=== PATIENT | male | born 1995 | race Caucasian/White ===

== ENCOUNTER 2022-05-19 11:32 | Inpatient (IN) | payer OTHER ==
[~2022-05-19] VITALS: Ht 177.8 cm; Wt 65.7 kg
[~2022-05-19 11:32] MED LIST: ALLEGRA ALLERGY60 MG PO; Naprosyn500 MG PO; Norco 10-325 T1 EACH PO; Pepcid40 MG PO; Prednisone20 MG PO
[2022-05-19 11:46] LABS: PCO2 Venous 24.8 mmHg (38-42); PO2 Venous 70.6 mmHg (38-42)
[2022-05-19 11:48] LABS: pH Blood Venous <6.80 (7.34-7.37)
[2022-05-19 11:49] LABS: Base Excess Venous -30.9 mmol/L
[2022-05-19 11:50] LABS: BASOPHILS ABSOLUTE AUTO 0.11 K/mm3 (0.00-0.23); BASOPHILS PERCENT AUTO 0 % (0-2); EOSINOPHILS ABSOLUTE AUTO 0.01 K/mm3 (0.00-0.68); EOSINOPHILS PERCENT AUTO 0 % (0-6); Hematocrit 45.6 % (37.0-53.0); Hemoglobin 15.7 g/dL (13.5-17.5); IMMATURE GRAN ABSOLUTE AUTO 1.32 K/mm3 (0.00-0.10); IMMATURE GRAN PERCENT AUTO 4 % (0-1); LYMPHOCYTES ABSOLUTE AUTO 1.43 K/mm3 (0.84-5.20); LYMPHOCYTES PERCENT AUTO 4 % (21-46); MONOCYTES ABSOLUTE AUTO 2.54 K/mm3 (0.16-1.47); MONOCYTES PERCENT AUTO 8 % (4-13); Mean Corpuscular HGB 30.4 pg (26.0-34.0); Mean Corpuscular HGB Conc 34.4 g/dL (31.5-36.5); Mean Corpuscular Volume 88 fL (80-100); Mean Platelet Volume 11.6 fL (9.1-12.4); NEUTROPHILS ABSOLUTE AUTO 28.39 K/mm3 (1.96-9.15); NEUTROPHILS PERCENT AUTO 84 % (41-73); Platelet Count 250 K/mm3 (150-400); RDW Coefficient Variation 12.3 % (11.7-14.2); RDW Standard Deviation 40.3 fL (35.1-46.3); Red Blood Cell Count 5.17 M/mm3 (4.30-5.90)
[2022-05-19 11:55] LABS: Calcium, Ionized (POC) 1.26 mmol/L (1.10-1.46); Chloride (POC) 97 mmol/L (98-108); Creatinine (POC) 2.2 mg/dL (0.8-1.3); Glucose (ISTAT POC) 636 mg/dL (70-99); Hemoglobin (POC) 16.7 g/dL (13.5-17.5); Potassium (POC) 5.4 mmol/L (3.5-5.5); Sodium (POC) 123 mmol/L (135-148); Total CO2 (POC) 8 mmol/L (21-32)
[2022-05-19 12:05] LABS: Ethanol (Alcohol), Blood, Med <3 mg/dL
[2022-05-19 12:07] LABS: Alanine Aminotransfer (ALT/SGP 35 U/L (12-78); Albumin/Globulin Ratio 1.3 (0.8-1.8); Alk Phos 142 U/L (50-136); Anion Gap 30 mmol/L (6-16); Aspartate Aminotrans (AST/SGOT 46 U/L (12-37); Bilirubin, Total 0.6 mg/dL (0.1-1.0); Blood Urea Nitrogen 60 mg/dL (8-24); Bun/Creatinine Ratio 30.2 (12.0-20.0); CO2, Blood 6 mmol/L (21-32); Calcium, Blood 8.6 mg/dL (8.5-10.1); Chloride, Blood 90 mmol/L (98-108); Creatinine, Blood 1.99 mg/dL (0.60-1.20); Globulin, Blood 3.1 g/dL (2.2-4.0); Glomerular Filtration Rate 47 (60-); Glucose, Blood 643 mg/dL (70-99); Potassium, Blood 5.3 mmol/L (3.5-5.5); Sodium, Blood 126 mmol/L (136-145); Total Protein, Blood 7.1 g/dL (6.4-8.2)
[2022-05-19 12:40] LABS: U Amphetamine Screen Not Detected; U Barbituate Screen Not Detected; U Benzodiazapine Screen Not Detected; U Buprenorphine Screen Not Detected; U Cannabinoids Screen DETECTED; U Cocaine Screen Not Detected; U Methadone Screen Not Detected; U Methamphetamine Screen Not Detected; U Opiates Screen Not Detected; U Oxycodone Screen Not Detected; U Phencyclidine Screen Not Detected; U Propoxyphene Screen Not Detected
[2022-05-19 12:50] LABS: Source, Urine Foley catheter
[2022-05-19 13:01] LABS: Appearance, Urine Clear (Clear); Bilirubin, Urine Neg (Neg); Blood, Urine 5+ (Neg); Color, Urine Yellow (P-Yellow); Glucose Qualitative, Urine 4+ (Neg); Ketones, Urine 4+ (Neg); Leukocyte Esterase, Urine Neg (Neg); Nitrite, Urine Neg (Neg); Protein, Urine 2+ (Neg); Urobilinogen, Urine NORM (Normal)
[2022-05-19 13:17] LABS: Influenza A, PCR NEGATIVE (NEGATIVE); Influenza B, PCR NEGATIVE (NEGATIVE); Resp Syncytial Virus, PCR NEGATIVE (NEGATIVE); SARS-Cov-2 (COVID-19) PCR, MMC NEGATIVE (NEGATIVE)
[2022-05-19 13:19] LABS: Bacteria Not Seen /hpf; Squamous Epithelial Cells Not Seen /hpf (Few); White Blood Cells, Urine Not Seen /hpf (0-5)
[2022-05-19 13:20] LABS: Granular Casts 0-2 /lpf (0); Hyaline Casts 0-2 /lpf (0-2)
[2022-05-19 16:06] LABS: Base Excess Venous -25.7 mmol/L; Bicarbonate Venous 8.5 mmol/L (24.0-30.0); PCO2 Venous 20.4 mmHg (38-42); PO2 Venous 74.1 mmHg (38-42)
[2022-05-19 16:45] LABS: Bun/Creatinine Ratio 37.3 (12.0-20.0); Calcium, Blood 7.7 mg/dL (8.5-10.1); Creatinine, Blood 1.53 mg/dL (0.60-1.20)
--- NOTE | 2022-05-19 18:34 | NUR ---
PATIETN CONFUSED, PULLING AT RESTRAINTS, UNCONSOLABLE FROM STAFF AND FAMILY, SCREAMS OUT, NABIL ARMS AND FEET SOFT RESTRAINTS, CSM+, SKIN CHECKED, SKIN INTACT. MEDICATED WITH ATIVAN CORE TEMP WAS 94.3, BEAR HUGGER ON TEMP NOW 96.8, PATIENT RESTING NO DISTRESS PRESENTLY. RESPIRATIONS 20-30, LS DIMINISHED, HEART RATE 90-130, BP WNL, TEMP MATHEWS IN PLACE, OUTPUT 2000+, NPO, FAMILY DENIES ANY MEDICAL HISTROY, PATIENT HAS NEVER BEEN IN THE HOSPITAL. BC DONE, STARTED ON SEPSIS PROTOCOL, DENIES ANY DRUG USE OTHER THAN THC. INSULIN GTT AT 7, NS AT 200 ML/HR, WILL REALY TO PM RN, WCTM
[2022-05-19 21:25] LABS: Bun/Creatinine Ratio 36.5 (12.0-20.0); Creatinine, Blood 1.26 mg/dL (0.60-1.20); Potassium, Blood 3.1 mmol/L (3.5-5.5)
[2022-05-20 04:22] LABS: Bun/Creatinine Ratio 39.5 (12.0-20.0); Creatinine, Blood 0.84 mg/dL (0.60-1.20); Potassium, Blood 4.6 mmol/L (3.5-5.5)
--- NOTE | 2022-05-20 06:39 | NUR ---
SHIFT SUMMARY: PT INITIALLY VERY WITHDRAWN AND REQUIRES REPEATED STIMULATION TO OPEN EYES AND FOLLIOW COMMANDS BUT PT NOT ORIENTED. PT CONTINUED ON INSULIN GTT WITH D5 1/2NS @150/HR. ORDER RECEIVED FROM DR. SIDDIQUI AT AROUND 2030 FOR ADDITIONAL LABS AT 21OO. ANION GAP CONTINUES TO CLOSE. PT'S MENTATION IMPLOVED SLIGHTLY OVER NIGHT, WITH PT ABLE TO WAKE MORE EASILY AND FOLLOW COMMANDS. PT STILL LOCALIZING THE MATHEWS CATHETER AND IS IMPULSIVE. SOFT RESTRAINTS SEEM TO STILL BE APPROPRIATE. BGL CHECKED Q1H OVER NIGHT.
--- NOTE | 2022-05-20 07:26 | NUR ---
ASSUMED CARE: PT AWAKE BUT DROWSY. STATES HIS NAME AND BIRTHDAY, KNOWS HE'S IN THE HOSPITAL IN [place]. ASKS WHY HE'S HERE. RN ORIENTS HIM TO SITUATION. PT DENIES EVER BEING TOLD HE'S DIABETIC. PHONE IN HAND TO CALL . CALL LIGHT IN REACH. ICE WATER AVAILABLE. EXPLAINED NPO STATUS UNTIL DR ABLE TO SEE PT. IV INSULIN GTT AT 5.5UNITS/HR WITH D5 1/2 RUNNING. NO ACUTE NEEDS AT THIS TIME.
[2022-05-20 07:56] LABS: Hematocrit 37.5 % (37.0-53.0); Mean Corpuscular HGB Conc 37.3 g/dL (31.5-36.5); Mean Platelet Volume 11.8 fL (9.1-12.4); Platelet Count 170 K/mm3 (150-400); RDW Coefficient Variation 12.3 % (11.7-14.2); RDW Standard Deviation 35.5 fL (35.1-46.3); Red Blood Cell Count 4.67 M/mm3 (4.30-5.90); White Blood Cell Count 7.06 K/mm3 (4.00-11.30)
[2022-05-20 07:58] LABS: Mean Corpuscular Volume 80 fL (80-100)
--- NOTE | 2022-05-20 09:15 | NUR ---
DR SIDDIQUI CAME TO SEE PT AND TOLD HIM THAT HE HAS DIABETES AND THAT HE WILL NEED TO BE ON INSULIN. ATTEMPTED TO CALL PT'S BUT UNABLE TO GET THROUGH. ASKED PT WHAT HE KNOWS ABOUT DIABETES AND HE STATES THAT HE KNOWS IT CAN BE DEADLY. EXPLAINED THAT THE COMPLICATIONS COME FROM POOR DIABETES CONTROL. INFORMED HIM THAT WE WILL BE PROVIDING EDUCATION GRADUALLY SO NOT TO OVERWHELM HIM. PT REQUESTED MATHEWS CATH TO BE REMOVED. MATHEWS REMOVED AND URINAL PROVIDED. AWAITING MEAL TRAY TO START TRANSITION PROCESS.
--- NOTE | 2022-05-20 09:25 | NUR ---
PT'S CALLED TO GET UPDATE. UPDATED HER ON PT'S DIAGNOSIS AND SHE STATES HER MOTHER HAD DIABETES SO IT IS A TOPIC SHE IS FAMILIAR WITH. SHE STATES SHE WILL BE IN AT 11 AND INFORMED HER THAT THIS RN WILL START EDUCATION AT THAT TIME AND THAT WE WILL BE GRADUAL SO TO NOT OVERWHELM THEM. DIETITIAN AT BEDSIDE AT THIS TIME.
--- NOTE | 2022-05-20 10:15 | NUR ---
PT'S FATHER HERE TO VISIT AND STATES THAT PT'S GRANDMOTHER AND 2 COUSINS ALL HAD EARLY ONSET DIABETES. 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 WILL RELAY INFORMATION FURTHER WHEN PT'S S.O. ARRIVES.
--- NOTE | 2022-05-20 11:42 | NUR ---
SYSTEMS PROTECTION TECHNICIAN CAME TO SEE PT AND FAMILY REGARDING INSURANCE AND DISCHARGE NEEDS. RN ENTERED ROOM TO GIVE PACKET WITH DIABETES EDUCATION AND STARTED WITH BASIC INSTRUCTION. INSTRUCTED PT AND FAMILY TO REVIEW PACKET OF INFORMATION AND THAT WE WILL REVIEW WITH THEM TIME GOES ON. PT'S PARENTS AND SPOUSE AT BEDSIDE AT THIS TIME.
--- NOTE | 2022-05-20 13:45 | NUR ---
CALL TO DR SIDDIQUI TO UPDATE HIM ON PT'S STATUS. AWARE THAT CBGS HAVE BEEN BETWEEN LOW 100S TO 180S. PT NAUSEATED AND TOLERATING SMALL AMOUNTS OF FOOD BUT BLOOD SUGARS STABLE. WASH OIL PUMP OPERATOR HELPER AND NURSING CIAIO COUNTER MOLDER AWARE
--- NOTE | 2022-05-20 15:00 | NUR ---
Spiritual Care Request. Pt. is resting but reponds when I enter the room. Pt. didn't personally request spiritual care. Pt. verbalized that it is his mother that "believes in that stuff". Empathicially listen and engage with pt. in the point of his struggle. Establish rapport. Pt. displays evidence of trust. Pt. verbalized gratitude for the spiritual care visit.
--- NOTE | 2022-05-20 16:07 | NUR ---
CALL TO DR SIDDIQUI TO MAKE SURE HE WAS AWARE THAT NO LONG ACTING INSULIN WAS CURRENTLY ORDERED. DR SIDDIQUI STATED THAT HE IS AWARE AND WAS WATCHING PT'S SUGARS TO DETERMINE WHAT LONG ACTING TO ORDER AND STATES HE WILL PLACE FURTHER ORDERS.
--- NOTE | 2022-05-20 16:20 | NUR ---
REPORT GIVEN TO MEDICAL FLOOR NURSE. PT TRANSFERRED VIA WHEEL CHAIR BY HOSPITAL STAFF. CALL TO TO MAKE HER AWARE OF NEW ROOM
--- NOTE | 2022-05-20 16:21 | NUR ---
UNABLE TO LEAVE MESSAGE WITH DUE TO BUSY SIGNAL.
--- NOTE | 2022-05-20 16:38 | NUR ---
RN NOTE PT TRANSFERED TO MEDICAL FLOOR FROM ICU AT 1620 HRS VIA W/C. HE WAS ABLE TO TRANSFER INDEPENDENTLY, SAID HE FELT A LITTLE DIZZY ON TRANSFER. HE LOOKS TO BE SLEEPING NOW.
--- NOTE | 2022-05-20 17:34 | NUR ---
PT SAID HE'S VERY TIRED, HAS HAD HIS EYES CLOSED RESTING SINCE HE'S BEEN HERE ON THE MEDICAL UNIT. HE IS NOT ENGAGING IN CONVERSATION AT THIS TIME. TRIED TO CALL REYMUNDO TO LET HER KNOW ABOUT TRANSFER BUT STILL BUSY SIGNAL. ACCUCHECK DONE BUT MEAL TRAYS NOT HERE YET. BED LOW, CALL LIGHT IN REACH.
--- NOTE | 2022-05-20 18:15 | NUR ---
POOR APPETITE. ENCOURAGED TO EAT AND GIVEN RATIONALE FOR EATING AND TAKING INSULIN WITH MEALS. I TALKED WITH HIM ABOUT THE INSULIN I WAS GIVING, AMOUNT, WHAT HIS SUGAR WAS BUT HE DIDN'T DEMONSTRATE AN INTEREST IN LEARNING OR DISCUSSING AT THIS TIME. I ASKED HIM IF HE WOULD LIKE TO GIVE THE INSULIN HIMSELF BUT HE DECLINED.
--- NOTE | 2022-05-21 05:19 | NUR ---
SHIFT SUMMARY AOX4. VSS. REPORTS ALLOVER ABD PAIN/DISCOMFORT, NAUSEA, LACK OF APPETITE, MEDICATED 1X c ZOFRAN. PT HAD INCONT SOFT BM, NO FURTHER NAUSEA OR ABD PAIN REPORTED. HS CBG @208, PROVIDED 15U GLARGINE PER ORDERS- EDUCATED & OBSERVED PT GIVING HIMSELF THE INSULIN. SLEPT SOUNDLY T/O NIGHT. ABLE TO MAKE NEEDS KNOWN. WILL MONITOR.
[2022-05-21 06:09] LABS: Bun/Creatinine Ratio 30.3 (12.0-20.0); Calcium, Blood 8.8 mg/dL (8.5-10.1); Creatinine, Blood 0.63 mg/dL (0.60-1.20)
[2022-05-21 06:10] LABS: Potassium, Blood 2.6 mmol/L (3.5-5.5)
--- NOTE | 2022-05-21 09:53 | NUR ---
MD CALL PT C/O SEVERE PAIN TO ARM WITH POTASSIUM INFUSION. TRIED REDUCING THE RATE, GIVING IT CONCURRENT WITH NS INFUSION, SWITCHING TO ANOTHER IV SITE BUT PT WANTS ME TO STOP INFUSION. POTASSIUM STOPPED. DR SIDDIQUI INFORMED AND HE SAID OK TO CANCEL IV POTASSIUM, HE WILL PUT IN DIFFERENT POTASSIUM MEDICATION ORDER.
--- NOTE | 2022-05-21 11:29 | NUR ---
PT HAS ALTERNATED FROM REFUSAL TO DO OWN FINGERSTICK THIS MORNING TO AGREEING TO PARTICIPATE IN EDUCATION. HE HAS ALTERNATED FROM SWEARING AT ME TO BEING APPROPRIATE WITH ME AND THEN AGREED TO PARTICIPATE IN EDUCATION. DR SIDDIQUI TOLD HIM THAT HE CAN BE DISCHARGED IF HE CAN PROVE THAT HE CAN CAR FOR HIS DIABETES AT HOME. I SPOKE TO ROSALEE, LIQUID WASTE TREATMENT PLANT OPERATOR, WHO IS COMING TO TALK TO HIM TODAY. ANDRESSA, ANALYTICAL TECH TALKING WITH PT, PT HAS BEEN APPROVED FOR [facility] AND WORKING ON GETTING MEDS AND SUPPLIES AT PHARMACY. PT'S IS HERE. SHE SAID THAT SHE IS A CAREGIVER AND HAS CHECKED BLOOD SUGARS AND GIVEN INSULIN INJECTIONS AND FEELS COMFORTABLE WITH IT. SHE SAID THAT SHE READ THROUGH THE EDUCATIONAL MATERIAL THAT WAS PROVIDED TO PT.
[2022-05-21] MEDS ORDERED: INSULIN GL100 UNIT/3 SC (17:30)
[2022-05-21] MEDS ORDERED: HUMULIN R100 UNIT/2 SC (17:32)
--- NOTE | 2022-05-21 19:36 | NUR ---
DISCHARGE AT 1905 TO HOME MR SAUL HAD A COMPLICATED DISCHARGE PROCESS TODAY. INSULATION WORKER WAS INVOLVED IN HELPING PT TO GET HIS MEDICATIONS AND EQUIPMENT FOR DISCHARGE. [facility] WOULD GIVE HIS INSULIN TODAY, WHEREAS OTHER PHARMACIES WANTED 2 DAY LEAD TIME FOR INSURANCE APPROVAL. [facility] PHARMACIST JC SAID THAT GLARGINE IS NOT COVERED BY HIS INSURANCE AND THAT LEVEMIR INSULIN PEN WAS COVERED. I CALLED AND SPOKE TO DR SIDDIQUI WHO SAID THAT LEVEMIR WAS TOTALLY FINE, SAME DOSE. BLOOD GLUCOSE MONITOR FORM WAS FAXED TO [facility] AND PT'S TOOK VOUCHER TO PICK IT UP, BUT THEY WON'T HAVE THESE AVAILABLE UNTIL TOMORROW. 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 HIS PURCHASED A GLUCOMETER FOR TONIGHT. HIS IS A CAREGIVER AND SAID SHE FEELS VERY COMFORTABLE USING THE GLUCOMETER, GIVING INSULIN INJECTIONS AND ALL ASPECTS OF THIS PROCESS. PT DEMONSTRATED FINGER STICK BLOOD COLLECTION AND DEMONSTRATED DRAWING UP INSULIN ACCURATELY AND SHOWED A DEMONSTRATION OF INJECTING HIMSELF WITH A SALINE SC INJECTION. I REVIEWED AREAS TO ROTATE INJECTIONS WITH PT AND HIS . I GAVE HIM A PACKAGE TO START SETTING UP CARE WITH [facility] AND CONTACT NUMBERS. WENT THROUGH DISCHARGE INSTRUCTIONS, WRITTEN , VERBAL AND DEMONSTRATIONS. I ASKED HIM QUESTIONS TO CHECK HIS UNDERSTANDING AND HE DID ANSWER APPROPRIATELY. POT ROOM TAPPER CAME TODAY TO GIVE EDUCATION WITH PT AND HIS . IVS REMOVED AND PT DISCHARGED VIA W/C TO HOME AT 1905HRS. HE AND HIS VERBALISED UNDERSTANDING OF DC INSTRUCTIONS.
== END 2022-05-21 19:09 | disposition home or self-care (01) | DRG 637 ==
LOC: ER 11:32 → ICUW 12:51 → MEDS 05-20 16:18 → ENPENDDIS 05-21 16:25 → MEDS 05-21 19:09
PROVIDERS: Emergency Medicine; ADMIT Internal Medicine
DX: E11.10 Type 2 diabetes mellitus with ketoacidosis without coma (principal); G92.8 Other toxic encephalopathy; N17.9 Acute kidney failure, unspecified; R64 Cachexia; Z68.1 Body mass index [BMI] 19.9 or less, adult; Z20.822 Contact with and (suspected) exposure to COVID-19; D72.828 Other elevated white blood cell count; T68.XXXA Hypothermia, initial encounter; E87.6 Hypokalemia; Z88.8 Allergy status to other drugs, medicaments and biological substances; X58.XXXA Exposure to other specified factors, initial encounter
CPT/HCPCS: 0241U; 36415; 51702; 71045; 80047; 80048; 80053; 81001; 82803; 82947; 83036; 83605; 83690; 83880; 84484; 85014; 85025; 85027; 93005; 93010; 96374-59; 99285-25; A9270; G0480; J0696; J1815; J2060; J2405; J3480; J7030; J7040; J7042

== ENCOUNTER 2023-07-07 11:44 | Emergency (ER) | payer OTHER ==
[~2023-07-07] VITALS: Ht 190.5 cm; Wt 77.1 kg
[~2023-07-07 11:44] MED LIST changes: +HUMULIN R100 UNIT/2 SC; +INSULIN GL100 UNIT/3 SC
[2023-07-07 12:20] LABS: BASOPHILS ABSOLUTE AUTO 0.15 K/mm3 (0.00-0.23); BASOPHILS PERCENT AUTO 1 % (0-2); EOSINOPHILS ABSOLUTE AUTO 0.23 K/mm3 (0.00-0.68); EOSINOPHILS PERCENT AUTO 2 % (0-6); Hematocrit 44.7 % (37.0-53.0); Hemoglobin 15.4 g/dL (13.5-17.5); IMMATURE GRAN ABSOLUTE AUTO 0.16 K/mm3 (0.00-0.10); IMMATURE GRAN PERCENT AUTO 1 % (0-1); LYMPHOCYTES ABSOLUTE AUTO 2.87 K/mm3 (0.84-5.20); LYMPHOCYTES PERCENT AUTO 18 % (21-46); MONOCYTES ABSOLUTE AUTO 0.54 K/mm3 (0.16-1.47); MONOCYTES PERCENT AUTO 3 % (4-13); Mean Corpuscular HGB 30.6 pg (26.0-34.0); Mean Corpuscular HGB Conc 34.5 g/dL (31.5-36.5); Mean Corpuscular Volume 89 fL (80-100); Mean Platelet Volume 10.5 fL (9.1-12.4); NEUTROPHILS ABSOLUTE AUTO 11.86 K/mm3 (1.96-9.15); NEUTROPHILS PERCENT AUTO 75 % (41-73); Platelet Count 302 K/mm3 (150-400); RDW Coefficient Variation 12.2 % (11.7-14.2); RDW Standard Deviation 40.1 fL (35.1-46.3); Red Blood Cell Count 5.04 M/mm3 (4.30-5.90); White Blood Cell Count 15.81 K/mm3 (4.00-11.30)
[2023-07-07 12:23] LABS: Base Excess Venous -6.6 mmol/L; Bicarbonate Venous 19.2 mmol/L (24.0-30.0); PCO2 Venous 42.3 mmHg (38-42); pH Blood Venous 7.29 (7.34-7.37)
[2023-07-07 12:30] VITALS: BP 139/74
[2023-07-07 12:44] LABS: Albumin, Blood 4.2 g/dL (3.4-5.0); Albumin/Globulin Ratio 1.7 (0.8-1.8); Bilirubin, Total 1.2 mg/dL (0.1-1.0); Bun/Creatinine Ratio 26.8 (12.0-20.0); Calcium, Blood 8.8 mg/dL (8.5-10.1); Creatinine, Blood 0.82 mg/dL (0.60-1.20); Globulin, Blood 2.5 g/dL (2.2-4.0); Potassium, Blood 4.5 mmol/L (3.5-5.5); Total Protein, Blood 6.7 g/dL (6.4-8.2)
== END 2023-07-07 15:08 | disposition home or self-care (01) ==
LOC: ER 11:44
PROVIDERS: Emergency Medicine
DX: E10.10 Type 1 diabetes mellitus with ketoacidosis without coma (principal); F17.220 Nicotine dependence, chewing tobacco, uncomplicated; Z88.8 Allergy status to other drugs, medicaments and biological substances; Z79.4 Long term (current) use of insulin
CPT/HCPCS: 71045; 80053; 82803; 82947; 85025; 93005; 93010; 96361; 96374; 99285-25; J2405; J7030

== ENCOUNTER 2024-03-18 16:49 | Emergency (ER) | payer OTHER ==
[~2024-03-18] VITALS: Ht 188 cm; Wt 75.3 kg
[~2024-03-18 16:49] MED LIST changes: +Inderal 20 mg T20 MG PO
[2024-03-18] MEDS ORDERED: NS 1,000 ML IV SCH (17:10)
[2024-03-18 17:28] LABS: Base Excess Venous 3.9 mmol/L; Bicarbonate Venous 26.8 mmol/L (24.0-30.0); PCO2 Venous 49.3 mmHg (38-42); pH Blood Venous 7.38 (7.34-7.37)
[2024-03-18 17:35] LABS: Chloride (POC) 96 mmol/L (98-108); Creatinine (POC) 0.8 mg/dL (0.8-1.3); Glucose (ISTAT POC) 481 mg/dL (70-99); Hemoglobin (POC) 13.9 g/dL (13.5-17.5); Potassium (POC) 4.4 mmol/L (3.5-5.5); Sodium (POC) 134 mmol/L (135-148); Total CO2 (POC) 26 mmol/L (21-32)
[2024-03-18 17:43] LABS: BASOPHILS PERCENT AUTO 1 % (0-2); EOSINOPHILS ABSOLUTE AUTO 0.11 K/mm3 (0.00-0.68); EOSINOPHILS PERCENT AUTO 1 % (0-6); Hematocrit 38.2 % (37.0-53.0); Hemoglobin 12.9 g/dL (13.5-17.5); IMMATURE GRAN ABSOLUTE AUTO 0.04 K/mm3 (0.00-0.10); IMMATURE GRAN PERCENT AUTO 0 % (0-1); LYMPHOCYTES ABSOLUTE AUTO 1.41 K/mm3 (0.84-5.20); LYMPHOCYTES PERCENT AUTO 10 % (21-46); MONOCYTES ABSOLUTE AUTO 0.96 K/mm3 (0.16-1.47); MONOCYTES PERCENT AUTO 7 % (4-13); Mean Corpuscular HGB 30.6 pg (26.0-34.0); Mean Corpuscular HGB Conc 33.8 g/dL (31.5-36.5); Mean Corpuscular Volume 91 fL (80-100); Mean Platelet Volume 10.2 fL (9.1-12.4); NEUTROPHILS ABSOLUTE AUTO 11.34 K/mm3 (1.96-9.15); NEUTROPHILS PERCENT AUTO 81 % (41-73); Platelet Count 335 K/mm3 (150-400); RDW Coefficient Variation 12.6 % (11.7-14.2); RDW Standard Deviation 41.9 fL (35.1-46.3); Red Blood Cell Count 4.21 M/mm3 (4.30-5.90); White Blood Cell Count 13.96 K/mm3 (4.00-11.30)
[2024-03-18 18:04] LABS: Albumin, Blood 3.8 g/dL (3.4-5.0); Albumin/Globulin Ratio 1.2 (0.8-1.8); Bilirubin, Total 1.1 mg/dL (0.1-1.0); Bun/Creatinine Ratio 23.9 (12.0-20.0); Calcium, Blood 9.3 mg/dL (8.5-10.1); Creatinine, Blood 0.71 mg/dL (0.60-1.20); Globulin, Blood 3.3 g/dL (2.2-4.0); Total Protein, Blood 7.1 g/dL (6.4-8.2)
[2024-03-18] MEDS ORDERED: Ondansetron HCl 2 MG / ML 2ML Vial IV ONE (20:45)
[2024-03-18] MEDS ORDERED: Insulin Regular 100 Unit/ML 1ML Dose IV ONE (20:45)
[2024-03-18] MEDS ORDERED: Insulin Glargine-Yfgn 100 Unit/mL 3 ML SYR SC ONE (21:00)
[2024-03-18] MEDS ORDERED: Mag Hydrox/AL Hydrox/Simeth 30 ML UDC PO ONE (21:05)
[2024-03-18] MEDS ORDERED: Lidocaine 2% Viscous Soln 15 ML UDC PO ONE (21:05)
[2024-03-18 22:00] VITALS: BP 113/67
== END 2024-03-18 22:13 ==
LOC: ER 16:49
PROVIDERS: Physician Assistant
DX: E10.65 Type 1 diabetes mellitus with hyperglycemia (principal); R10.9 Unspecified abdominal pain; E86.0 Dehydration; Z91.148 Patient's other noncompliance with medication regimen for other reason; R11.2 Nausea with vomiting, unspecified; Z88.8 Allergy status to other drugs, medicaments and biological substances; Z79.4 Long term (current) use of insulin; F17.220 Nicotine dependence, chewing tobacco, uncomplicated
CPT/HCPCS: 80047; 80053; 82803; 82947; 85014; 85025; 96361; 96374; 99284-25; A9270; J1815; J2405; J7030

== ENCOUNTER 2024-09-18 00:36 | Observation (INO) | payer OTHER ==
[~2024-09-18] VITALS: Ht 188 cm; Wt 67.8 kg
[~2024-09-18 00:36] MED LIST changes: +BASAGLAR K100 UNIT/1
[2024-09-18] MEDS ORDERED: Insulin Human Regular 100 UNIT in NS 100 ML IV SCH (00:50)
[2024-09-18] MEDS ORDERED: NS 1,000 ML IV SCH (00:50)
[2024-09-18] MEDS ORDERED: Ketorolac Tromethamine 15mg Vial IV ONE (00:55)
[2024-09-18 01:03] LABS: BASOPHILS ABSOLUTE AUTO 0.12 K/mm3 (0.00-0.23); BASOPHILS PERCENT AUTO 1 % (0-2); EOSINOPHILS ABSOLUTE AUTO 0.01 K/mm3 (0.00-0.68); EOSINOPHILS PERCENT AUTO 0 % (0-6); Hematocrit 46.4 % (37.0-53.0); Hemoglobin 15.2 g/dL (13.5-17.5); IMMATURE GRAN ABSOLUTE AUTO 0.06 K/mm3 (0.00-0.10); IMMATURE GRAN PERCENT AUTO 0 % (0-1); LYMPHOCYTES PERCENT AUTO 15 % (21-46); MONOCYTES ABSOLUTE AUTO 1.02 K/mm3 (0.16-1.47); MONOCYTES PERCENT AUTO 6 % (4-13); Mean Corpuscular HGB 29.6 pg (26.0-34.0); Mean Corpuscular HGB Conc 32.8 g/dL (31.5-36.5); Mean Corpuscular Volume 90 fL (80-100); Mean Platelet Volume 10.5 fL (9.1-12.4); NEUTROPHILS PERCENT AUTO 78 % (41-73); Platelet Count 305 K/mm3 (150-400); RDW Coefficient Variation 12.7 % (11.7-14.2); RDW Standard Deviation 41.7 fL (35.1-46.3); Red Blood Cell Count 5.13 M/mm3 (4.30-5.90); White Blood Cell Count 17.21 K/mm3 (4.00-11.30)
[2024-09-18] MEDS ORDERED: INSULIN AS100 UNIT/8 (01:07)
[2024-09-18 01:27] LABS: Base Excess Venous -15.3 mmol/L; Bicarbonate Venous 14.7 mmol/L (24.0-30.0); PCO2 Venous 23.5 mmHg (38-42); pH Blood Venous 7.29 (7.34-7.37)
[2024-09-18 01:34] LABS: Ethanol (Alcohol), Blood, Med <3 mg/dL; Magnesium, Blood 1.7 mg/dL (1.6-2.4)
[2024-09-18 01:38] LABS: Alanine Aminotransfer (ALT/SGP 30 U/L (12-78); Albumin, Blood 4.8 g/dL (3.4-5.0); Albumin/Globulin Ratio 1.7 (0.8-1.8); Alk Phos 113 U/L (50-136); Anion Gap 29 mmol/L (3-11); Aspartate Aminotrans (AST/SGOT 26 U/L (12-37); Bilirubin, Total 1.1 mg/dL (0.1-1.0); Blood Urea Nitrogen 22 mg/dL (8-24); Bun/Creatinine Ratio 24.6 (12.0-20.0); CO2, Blood 11 mmol/L (21-32); Calcium, Blood 9.5 mg/dL (8.5-10.1); Chloride, Blood 96 mmol/L (98-108); Creatinine, Blood 0.89 mg/dL (0.60-1.20); Globulin, Blood 2.9 g/dL (2.2-4.0); Glomerular Filtration Rate 120 (60-); Glucose, Blood 439 mg/dL (70-99); Potassium, Blood 4.6 mmol/L (3.5-5.5); Sodium, Blood 131 mmol/L (136-145); Total Protein, Blood 7.7 g/dL (6.4-8.2)
[2024-09-18 01:56] LABS: Beta-hydroxybutyrate 79.9 mg/dL (0.2-2.8)
[2024-09-18 02:10] LABS: Source, Urine Voided
[2024-09-18 02:14] LABS: Bilirubin, Urine Neg (Neg); Blood, Urine Neg (Neg); Glucose Qualitative, Urine 4+ (Neg); Ketones, Urine 4+ (Neg); Leukocyte Esterase, Urine Neg (Neg); Nitrite, Urine Neg (Neg); Protein, Urine Neg (Neg); Specific Gravity, Urine 1.025 (1.003-1.022); Urobilinogen, Urine NORM (Normal)
[2024-09-18 02:17] LABS: Appearance, Urine Clear (Clear); Color, Urine Yellow (P-Yellow)
[2024-09-18] MEDS ORDERED: Lactated Ringer's 1,000 ML IV SCH (02:55)
[2024-09-18] MEDS ORDERED: FLU VACC TS2024-25(6MOS UP)/PF 45 MCG/0.5 ML SYRINGE IM ONE (02:55)
[2024-09-18] MEDS ORDERED: Ondansetron HCl 2 MG / ML 2ML Vial IV PRN (02:55)
[2024-09-18 03:05] LABS: Phosphorus, Blood 4.7 mg/dL (2.5-4.9)
[2024-09-18] MEDS ORDERED: Potassium Chl 20MEQ/Water100ML 100 ML IV SCH (03:45)
[2024-09-18 03:46] LABS: U Amphetamine Screen Not Detected; U Barbituate Screen Not Detected; U Benzodiazapine Screen Not Detected; U Buprenorphine Screen Not Detected; U Cannabinoids Screen DETECTED; U Cocaine Screen Not Detected; U Methadone Screen Not Detected; U Methamphetamine Screen Not Detected; U Opiates Screen Not Detected; U Oxycodone Screen Not Detected; U Phencyclidine Screen Not Detected
[2024-09-18] MEDS ORDERED: Lactated Ringer's 1,000 ML IV ONE (04:02)
[2024-09-18 04:28] LABS: BASOPHILS PERCENT AUTO 0 % (0-2); EOSINOPHILS ABSOLUTE AUTO 0.01 K/mm3 (0.00-0.68); EOSINOPHILS PERCENT AUTO 0 % (0-6); Hematocrit 39.6 % (37.0-53.0); Hemoglobin 13.3 g/dL (13.5-17.5); IMMATURE GRAN ABSOLUTE AUTO 0.12 K/mm3 (0.00-0.10); IMMATURE GRAN PERCENT AUTO 1 % (0-1); LYMPHOCYTES ABSOLUTE AUTO 1.36 K/mm3 (0.84-5.20); LYMPHOCYTES PERCENT AUTO 6 % (21-46); MONOCYTES PERCENT AUTO 5 % (4-13); Mean Corpuscular HGB 29.8 pg (26.0-34.0); Mean Corpuscular HGB Conc 33.6 g/dL (31.5-36.5); Mean Corpuscular Volume 89 fL (80-100); Mean Platelet Volume 10.3 fL (9.1-12.4); NEUTROPHILS ABSOLUTE AUTO 21.25 K/mm3 (1.96-9.15); NEUTROPHILS PERCENT AUTO 88 % (41-73); Platelet Count 275 K/mm3 (150-400); RDW Coefficient Variation 12.3 % (11.7-14.2); RDW Standard Deviation 40.4 fL (35.1-46.3); Red Blood Cell Count 4.47 M/mm3 (4.30-5.90); White Blood Cell Count 24.14 K/mm3 (4.00-11.30)
[2024-09-18] MEDS ORDERED: D5W-1/2NS 1,000 ML IV SCH (04:35)
[2024-09-18 04:59] LABS: Albumin/Globulin Ratio 1.6 (0.8-1.8); Bilirubin, Total 0.9 mg/dL (0.1-1.0); Bun/Creatinine Ratio 27.2 (12.0-20.0); Calcium, Blood 8.3 mg/dL (8.5-10.1); Creatinine, Blood 0.88 mg/dL (0.60-1.20); Globulin, Blood 2.5 g/dL (2.2-4.0); Potassium, Blood 4.1 mmol/L (3.5-5.5); Total Protein, Blood 6.5 g/dL (6.4-8.2)
[2024-09-18 07:00] VITALS: BP 101/69
[2024-09-18 07:15] VITALS: BP 117/67
[2024-09-18] MEDS ORDERED: D5W-1/2NS KCl 20mEq 1,000 ML IV SCH (07:20)
[2024-09-18 07:30] VITALS: BP 114/79
[2024-09-18] MEDS ORDERED: Enoxaparin 40 MG/0.4 ML SYR SC SCH (09:00)
== END 2024-09-18 07:53 | disposition left against medical advice (07) ==
LOC: ER 00:36 → ERHOLD 00:37
PROVIDERS: Emergency Medicine; Student in an Organized Health Care Education/Training Program; ADMIT Student in an Organized Health Care Education/Training Program
DX: E10.10 Type 1 diabetes mellitus with ketoacidosis without coma (principal); F17.220 Nicotine dependence, chewing tobacco, uncomplicated; Z53.29 Procedure and treatment not carried out because of patient's decision for other reasons; Z88.8 Allergy status to other drugs, medicaments and biological substances
CPT/HCPCS: 36415; 71045; 80053; 80320; 81003; 82010; 82803; 82947; 83036; 83605; 83735; 84100; 84484; 85025; 93005; 93010; 96361; 96374; 96375; 99285-25; G0378; J1815; J1885; J3480; J7030; J7042; J7120